=== PATIENT | female | born 1965 | race Caucasian/White ===

== ENCOUNTER → 2021-08-15 13:09 | Outpatient (CLI) | payer OTHER, SELFPAY ==
[2021-08-15 14:15] LABS: COVID19 -Nasal RAPID Negative (Negative)
== END ==
PROVIDERS: Visit Provider Surgery
DX: Z01.812 Encounter for preprocedural laboratory examination (principal); Z20.822 Contact with and (suspected) exposure to COVID-19
CPT/HCPCS: 87635; C9803

== ENCOUNTER 2021-08-16 09:35 | Day surgery (SDC) | payer OTHER, SELFPAY ==
--- NOTE | 2021-08-16 | PATH_ITS ---
[facility] Accession Number: [id number] . 01 Material submitted: . colon - ASCENDING POLYPS . 02 Diagnosis: Ascending Colon, Polyps, Biopsies: Tubular adenoma. Inflammatory polyp. MRV 08/21/2021 1027 Local . 02 Electronically signed: . Brunilda Salcdeo MD, Pathologist NPI- [id number] . 01 Gross description: . ASCENDING POLYPS: Received in formalin are 2 fragment(s) of lloyd, soft tissue measuring 0.4 x 0.3 x 0.3 cm to 0.4 x 0.2 x 0.2 cm submitted entirely in 1 cassette(s) /CPE 08/17/2021 0843 Local . 02 Pathologist provided ICD-10: D12.2 . 02 CPT . 675996 Specimen Comment: A courtesy copy of this report has been sent to [phone] Performed at: 01 [facility] [address] [facility], [place], [place] [id number] MD Juan C Tomlin MD Phone: [phone] Performed at: 02 [facility] [address] [place], [place] [id number] MD Brunilda Salcedo MD Phone: [phone]
[2021-08-16 09:51] VITALS: BP 150/94; PULSE 90; RESP 16; TEMP 36.4; O2SAT 100
[2021-08-16 09:52] VITALS: BMI 33.0
[2021-08-16] MEDS: LACTATED RINGERS 1,000 ML 84 ML IV (10:00)
--- NOTE | 2021-08-16 10:50 | PM.HP.1 ---
History of Present Illness History of Present Illness Date Patient Seen: 08/16/21 Time Patient Seen: 10:50 Chief complaint: SDC Narrative: Celine is a 56-year-old woman who has not had a prior colonoscopy. Patient History Family & Social History Social History: household members spouse Tobacco & Substance use: Smoking Status Never smoker alcohol intake current alcohol intake frequency other Substance Use Type does not use Meds Home Medications and Allergies Home Medications Medication Instructions Recorded Confirmed Type levothyroxine 100 mcg tablet 100 mcg PO DAILY 08/15/21 08/16/21 History (Synthroid) Allergies Allergy/AdvReac Type Severity Reaction Status Date / Time No Known Drug Allergies Allergy Verified 08/16/21 09:50 Exam Vital Signs (past 8 hours): - 08/16/21 09:51 Temperature 97.6 F Pulse Rate 90 Respiratory Rate 16 Blood Pressure 150/94 H Pulse Oximetry 100 Oxygen Delivery Method Room Air Const General: healthy appearing Resp Effort & Inspection: normal respiratory effort GI Palpation: soft Assessment & Plan Assessment and plan (1) Colon cancer screening: Status: Acute Plan 56-year-old woman due for colonoscopy for colon cancer screening. We reviewed the risks and benefits and she would like to proceed. COVID-19 COVID-19 status: Negative Result date/Date tested (Pos, Neg/Pending): 08/15/21 Time Spent With Patient Critical Care time: I spent a total of [] minutes of critical care time on this patient's care today; this time is exclusive of procedural time.
[2021-08-16] MEDS: fentaNYL 250 MCG/5 ML INJ 125 MCG IV (11:02)
[2021-08-16] MEDS: MIDAZOLAM 5 MG/5 ML VIAL IV (11:02)
--- NOTE | 2021-08-16 11:22 | PM.OP.COLON ---
Operative Date/Time/Diagnoses Date of procedure: 08/16/21 Time of procedure: 11:22 Pre-op diagnosis: Colon cancer screening Post-op diagnosis: same Procedure Notes Procedure in detail: Surgeon: Boy Morton MD Procedure: The patient was brought to the endoscopy suite, placed in left lateral decubitus position. The patient was connected to monitoring devices. A time-out was performed. Sedation was administered. Once the patient was adequately sedated, a digital rectal exam was performed and was normal. The scope was then inserted and advanced to the cecum where the appendiceal orifice was identified and photographed. The scope was then slowly withdrawn over greater than 6 minutes. Mucosa was thoroughly inspected. There were 2 polyps in the ascending colon which were roughly 6 mm. They were both removed with cold snare. They were suctioned and sent together as ?ascending colon polyps?. The scope was retroflexed in the rectum. No other abnormalities were noted. The scope was straightened and removed. The patient was awakened and brought to recovery. Versed: 5 mg Fentanyl: 125 mcg EBL: 5 mL Findings: 2 polyps in the ascending colon which were roughly 6 mm in diameter. Scope withdrawal time: 11 Sedation minutes: 23 Post-procedure Recommendations: Will call with biopsy results Disposition: PACU
[2021-08-16 11:23] VITALS: BP 131/69; PULSE 61; RESP 18; TEMP 36.2; O2SAT 95
[2021-08-16 11:28] VITALS: BP 128/68; PULSE 82; RESP 20; O2SAT 96
[2021-08-16 11:33] VITALS: BP 134/77; PULSE 61; RESP 18; O2SAT 96
[2021-08-16 11:38] VITALS: BP 138/80; PULSE 65; RESP 18; O2SAT 97
== END 2021-08-16 11:59 | disposition home or self-care (01) ==
PROVIDERS: PCP Nurse Practitioner Family; Referring Provider Surgery; Visit Provider Surgery
PROC: 0DJD8ZZ Inspection of Lower Intestinal Tract, Via Natural or Artificial Opening Endoscopic (ICD-10-PCS; CPT 45378; principal; 2021-08-16 10:45)
DX: Z12.11 Encounter for screening for malignant neoplasm of colon (principal); D12.2 Benign neoplasm of ascending colon
CPT/HCPCS: 45385; 99152; J2250; J3010